=== PATIENT | male | born 1940 ===

== ENCOUNTER → 2016-12-08 | Outpatient (REF) | payer MEDICARE | LOC: M LAB REF 18:12 | PROVIDERS: ATTEND Internal Medicine Medical Oncology | DX: E83.119 Hemochromatosis, unspecified (principal); E80.1 Porphyria cutanea tarda ==

== ENCOUNTER → 2016-12-22 | Outpatient (REF) | payer MEDICARE ==
[2016-12-22 18:38] LABS: PERCENT SATURATION 44.7 % (19.7-50.0)
== END ==
LOC: M LAB REF 13:59
PROVIDERS: ATTEND Internal Medicine Medical Oncology
DX: E80.1 Porphyria cutanea tarda (principal)

== ENCOUNTER → 2017-01-05 | Outpatient (REF) | payer MEDICARE ==
[2017-01-05 19:02] LABS: PERCENT SATURATION 44.4 % (19.7-50.0)
== END ==
LOC: M LAB REF 17:08
PROVIDERS: ATTEND Internal Medicine Medical Oncology
DX: E83.119 Hemochromatosis, unspecified (principal)